=== PATIENT | male | born 1935 | race Caucasian/White ===

== ENCOUNTER 2025-05-04 07:51 | Inpatient (IN) | payer MEDICARE, OTHER ==
[~2025-05-04] VITALS: Ht 177.8 cm; Wt 81.6 kg
[2025-05-04] MEDS ORDERED: FENTANYL PF 100MCG/2ML AMPUL ONE (08:01)
[2025-05-04] MEDS ORDERED: ROCURONIUM BROMIDE 50 MG/5 ML ONE (08:02)
[2025-05-04] MEDS ORDERED: SUGAMMADEX SODIUM 200 MG/2 ML VIAL IV ONE (08:02)
[2025-05-04] MEDS ORDERED: hydrALAZINE HCL IV 20 MG VIAL ONE (08:21)
[2025-05-04] MEDS ORDERED: LABETALOL HCL IV 100MG VIAL ONE (08:22)
[2025-05-04] MEDS ORDERED: SEVOFLURANE 250 ML BOTTLE IH ONE (08:28)
[2025-05-04] MEDS ORDERED: ANESTHESIA TRAY IN PYXIS 1 EA TRAY MC ONE (08:34)
[2025-05-04] MEDS ORDERED: LIDOCAINE 1%-EPI 1:100,000 20 ML VIAL ONE (08:34)
[2025-05-04] MEDS ORDERED: BUPIVACAINE 0.5 % PF 150 MG/30 ML VIAL ONE (08:34)
[2025-05-04] MEDS ORDERED: BUPIVACAINE 0.25% 75 MG/30 ML VIAL ONE (09:21)
[2025-05-04] MEDS ORDERED: LIDOCAINE 1% INJ 50 ML MDV IJ ONE (09:22)
[2025-05-04 13:30] VITALS: BP 137/80; TEMP 98.4; O2SAT 94
[2025-05-04 16:00] VITALS: BP 133/70; TEMP 97.5; O2SAT 96
[2025-05-04] MEDS ORDERED: MAGNESIUM HYDROXIDE 30 ML UDC PO PRN (16:00)
[2025-05-04] MEDS ORDERED: ONDANSETRON HCL/PF 4 MG/2 ML VIAL IVP PRN (16:00)
[2025-05-04] MEDS ORDERED: MAG HYDROX/AL HYDROX/SIMETH 30 ML UDC PO PRN (16:00)
[2025-05-04] MEDS ORDERED: Z GUARD REMEDY 4 OZ OINT TP PRN (16:00)
[2025-05-04] MEDS ORDERED: HYDROCODONE/APAP 5/325MG TABLET PO PRN (16:00)
[2025-05-04] MEDS ORDERED: CETI10TA14 PO (16:19)
[2025-05-04] MEDS ORDERED: ATOR80TA PO (16:19)
[2025-05-04] MEDS ORDERED: LISI20TA30 PO (16:19)
[2025-05-04 20:00] VITALS: BP 156/85; TEMP 97.1; O2SAT 94
[2025-05-04 20:17] VITALS: BP 156/85; TEMP 97.9; O2SAT 94
[2025-05-05 06:43] LABS: PLATELET COUNT (AUTO) 163 K/uL (150-450); RED BLOOD CELL COUNT(AUTO) 5.08 MIL/uL (4.5-6.0); RED CELL DISTRIBUTION WIDTH 14.2 % (11.5-15.0); WHITE BLOOD COUNT (AUTO) 7.5 K/uL (4.3-11.0)
[2025-05-05 07:41] LABS: LDL 67.0 mg/dL (0-99)
[2025-05-05] MEDS: PANTOPRAZOLE 40 MG TABLET.DR PO SCH (08:14)
[2025-05-05 08:45] LABS: CALCIUM, SERUM 8.4 mg/dL (8.5-10.1); CREATININE 1.0 mg/dL (0.6-1.3); PHOSPHORUS 3.7 mg/dL (2.5-4.9); SODIUM SERUM 142.0 mmol/L (136-145); UREA NITROGEN, BLOOD 19.0 mg/dL (7-18)
[2025-05-05] MEDS: hydrALAZINE HCL IV 20 MG VIAL IV PRN (09:03)
[2025-05-05 09:15] VITALS: BP 189/94; TEMP 97.9; O2SAT 95
[2025-05-05] MEDS: LISINOPRIL (20MG) 20 MG TABLET PO SCH (11:12)
[2025-05-05] MEDS: cetrizine 10 MG TABLET PO SCH (11:12)
[2025-05-05 20:00] VITALS: BP_SYST 175; BP_SYST 200; BP_DIAS 102; BP_DIAS 98; TEMP 97.9; O2SAT 95
[2025-05-05] MEDS: CLONIDINE HCL 0.1 MG TABLET PO ONE (22:42)
[2025-05-05] MEDS: ATORVASTATIN 40 MG TABLET PO SCH (22:43)
[2025-05-06 08:00] VITALS: BP 169/93; TEMP 97.5; O2SAT 95
[2025-05-06] MEDS: LISINOPRIL (20MG) 20 MG TABLET PO SCH (09:12)
[2025-05-06 13:19] VITALS: BP 140/90
[2025-05-06 16:00] VITALS: BP 181/108; TEMP 97.7; O2SAT 96
[2025-05-06] MEDS: CLONIDINE HCL 0.1 MG TABLET PO ONE (18:26)
[2025-05-06] MEDS: ACETAMINOPHEN 325 MG TABLET PO PRN (18:29)
[2025-05-06 19:33] VITALS: BP 181/94; TEMP 97.7; O2SAT 96
[2025-05-06 20:00] VITALS: BP 190/98; TEMP 97.9; O2SAT 99
[2025-05-06 21:01] VITALS: BP 190/98; O2SAT 95
[2025-05-07 08:00] VITALS: BP 170/98; TEMP 97.5; O2SAT 95
[2025-05-07] MEDS ORDERED: NIFEdipine (10MG) 10 MG CAPSULE PO SCH (09:00)
[2025-05-07] MEDS: NIFEDIPINE XL 60 MG TAB.ER.24 PO SCH (09:31)
[2025-05-07 10:48] VITALS: BP 199/92
[2025-05-07] MEDS: ALPRAZOLAM 0.5 MG TABLET PO ONE (10:52)
== END 2025-05-07 16:41 | disposition home health service (06) | DRG 578 ==
LOC: DS 07:51 → MED 13:36
PROVIDERS: ADMIT Nurse Practitioner Acute Care; ATTEND Nurse Practitioner Acute Care
PROC: 0HBKXZZ Excision of Right Lower Leg Skin, External Approach (ICD-10-PCS; 2025-05-04)
PROC: 0HXKXZZ Transfer Right Lower Leg Skin, External Approach (ICD-10-PCS; principal; 2025-05-04 09:00)
DX: C44.722 Squamous cell carcinoma of skin of right lower limb, including hip (principal); I10 Essential (primary) hypertension; E78.5 Hyperlipidemia, unspecified; I16.0 Hypertensive urgency; Z98.890 Other specified postprocedural states; Z91.018 Allergy to other foods; Z87.19 Personal history of other diseases of the digestive system; R53.1 Weakness
CPT/HCPCS: 36415; 80048-TC; 80061-TC; 83735-TC; 84100-TC; 85025-TC; 88305-TC; 88341; 88342; 97110-TC; 97112-TC; 97116-TC; 97530-TC; 97535-TC; A6209; A6223; A6254; G0378; J0360; J0690; J2405; J2704; J3010; J3490; J7030